=== PATIENT | male | born 1980 | race Caucasian/White ===

== ENCOUNTER → 2016-12-31 | Outpatient (CLI) | payer MEDICAID ==
[2016-12-31 10:43] LABS: ALBUMIN 4.2 GM/DL (3.2-5.2); ALBUMIN/GLOBULIN RATIO 1.17 (1.00-1.93); ALKALINE PHOSPHATASE 67 U/L (45-117); ALT/SGPT 55 U/L (12-78); ANION GAP 6 MEQ/L (8-16); AST/SGOT 24 U/L (15-37); BILIRUBIN,TOTAL 0.5 MG/DL (0.2-1.0); BLOOD UREA NITROGEN 16 MG/DL (7-18); CALCIUM LEVEL 8.8 MG/DL (8.5-10.1); CARBON DIOXIDE LEVEL 31 MEQ/L (21-32); CHLORIDE LEVEL 102 MEQ/L (98-107); GLOMERULAR FILTRATION RATE > 60.0 (>60); GLUCOSE, FASTING 92 MG/DL (70-105); POTASSIUM SERUM 4.4 MEQ/L (3.5-5.1); SODIUM LEVEL 139 MEQ/L (136-145); TOTAL PROTEIN 7.8 GM/DL (6.4-8.2)
[2016-12-31 10:44] LABS: MEAN CORPUSCULAR HEMOGLOBIN 28.9 pg (27.0-33.0); MEAN CORPUSCULAR HGB CONC 33.8 g/dl (32.0-36.5); MEAN CORPUSCULAR VOLUME 85.3 fl (80.0-96.0); RED CELL DISTRIBUTION WIDTH 12.9 % (11.5-14.5); WHITE BLOOD COUNT 5.8 K/mm3 (4.0-10.0)
[2017-01-01 10:58] LABS: HEPATITIS B SURFACE ANTIBODY NEGATIVE (POSITIVE)
== END ==
LOC: M LAB 09:20
PROVIDERS: ATTEND Nurse Practitioner Family
DX: Z02.9 Encounter for administrative examinations, unspecified (principal); B18.2 Chronic viral hepatitis C; B16.9 Acute hepatitis B without delta-agent and without hepatic coma; B15.9 Hepatitis A without hepatic coma; Z11.3 Encounter for screening for infections with a predominantly sexual mode of transmission; D35.2 Benign neoplasm of pituitary gland; E29.1 Testicular hypofunction; Z87.898 Personal history of other specified conditions

== ENCOUNTER → 2017-01-30 | Outpatient (CLI) | payer OTHER ==
--- NOTE | 2017-02-03 08:52 | REP ---
MR BRAIN WITHOUT CONTRAST: HISTORY: Tumor. CONTRAST: ProHance 7 mL. Comparison: 07/13/2012 There are no areas of abnormal signal intensity in the brain. There is no intraparenchymal hemorrhage, infarct, mass, or midline shift. The ventricular system is normal in appearance. There is no extracerebral collection. The pituitary gland is normal in size and signal intensity. The pituitary gland measures 6 mm in height. There is homogenous enhancement with contrast. The infundibulum is midline. The cavernous sinuses, optic chiasm, and hypothalamus are normal in appearance. The sinuses are clear. IMPRESSION: There is no intracranial lesion. Signed by Byron Meredith MD 02/04/2017 02:05 P
== END ==
LOC: M RAD 13:55
PROVIDERS: ATTEND Nurse Practitioner Family
DX: D35.2 Benign neoplasm of pituitary gland (principal)

== ENCOUNTER → 2017-03-22 | Outpatient (CLI) | payer OTHER ==
[2017-03-22 09:26] LABS: ALBUMIN 3.8 GM/DL (3.2-5.2); ALBUMIN/GLOBULIN RATIO 1.27 (1.00-1.93); BILIRUBIN,DIRECT 0.1 MG/DL (0.0-0.2); BILIRUBIN,TOTAL 0.4 MG/DL (0.2-1.0); TOTAL PROTEIN 6.8 GM/DL (6.4-8.2)
[2017-03-25 14:14] LABS: HEPATITIS C QUANTITATION HCV Not Detected IU/mL (.)
== END ==
LOC: M LAB 08:33
PROVIDERS: ATTEND Internal Medicine Infectious Disease
DX: B18.2 Chronic viral hepatitis C (principal)

== ENCOUNTER → 2017-05-22 | Outpatient (CLI) | payer OTHER ==
--- NOTE | 2017-05-22 14:37 | REP ---
LEFT SHOULDER THREE VIEWS: HISTORY: Pain. There is no acute fracture or dislocation. The joint spaces are normal in appearance. IMPRESSION: There is no acute fracture or dislocation. Signed by Byron Meredith MD 05/22/2017 02:41 P
== END ==
LOC: M LAB 12:52
PROVIDERS: ATTEND Internal Medicine Cardiovascular Disease
DX: M25.512 Pain in left shoulder (principal); Z20.9 Contact with and (suspected) exposure to unspecified communicable disease

== ENCOUNTER → 2017-06-06 | Outpatient (CLI) | payer OTHER ==
--- NOTE | 2017-06-13 18:38 | REP ---
MRI LEFT SHOULDER: TECHNIQUE: Axial T2 fat sat, gradient echo, sagittal oblique T2 fat sat, coronal oblique T1, T2 fat sat. No rotator cuff tear is seen. There are mild hypertrophic degenerative changes of the acromioclavicular joint with subchondral marrow edema. Acromion is type 1. Biceps tendon is within the bicipital groove with no tenosynovitis. There is no Hill-Sachs deformity. Deltoid muscle is unremarkable. No SLAP tear is seen. Biceps labral complex is intact. Anterior and posterior labrum are intact. Small subchondral cysts are seen in the superolateral humeral head. There is no other abnormal marrow signal. There is no joint effusion or paralabral cyst. IMPRESSION: Mild hypertrophic degenerative changes acromioclavicular joint with subchondral marrow edema. Mild subchondral cystic change in the humeral head. No rotator cuff tear or labral tear. Signed by Que Kaplan MD 06/16/2017 04:12 P
== END ==
LOC: M RAD 09:28
PROVIDERS: ATTEND Nurse Practitioner Family
DX: M19.012 Primary osteoarthritis, left shoulder (principal)

== ENCOUNTER → 2017-06-10 | Outpatient (CLI) | payer OTHER ==
[2017-06-10 14:56] LABS: ALBUMIN 4.1 GM/DL (3.2-5.2); ALBUMIN/GLOBULIN RATIO 1.24 (1.00-1.93); ALKALINE PHOSPHATASE 63 U/L (45-117); ALT/SGPT 29 U/L (12-78); AST/SGOT 24 U/L (15-37); BILIRUBIN,DIRECT 0.2 MG/DL (0.0-0.2); BILIRUBIN,TOTAL 0.7 MG/DL (0.2-1.0); TOTAL PROTEIN 7.4 GM/DL (6.4-8.2)
[2017-06-12 10:14] LABS: HEPATITIS C QUANTITATION HCV Not Detected IU/mL (.)
== END ==
LOC: M LAB 13:00
PROVIDERS: ATTEND Internal Medicine Infectious Disease
DX: B18.2 Chronic viral hepatitis C (principal)

== ENCOUNTER 2017-08-25 06:56 | Emergency (ER) | payer OTHER ==
[~2017-08-25] VITALS: Ht 182.9 cm; Wt 78.2 kg
[2017-08-25 06:57] VITALS: BP 153/86
[2017-08-25] MEDS ORDERED: BUPR150T3 (07:04)
[2017-08-25] MEDS ORDERED: VIVI380I (07:04)
[2017-08-25] MEDS ORDERED: FLON1SPR (07:33)
[2017-08-25] MEDS ORDERED: BENZ200C53 PO (07:33)
[2017-08-25] MEDS ORDERED: IBUP-1022 PO (07:33)
== END 2017-08-25 07:38 | disposition home or self-care (01) ==
LOC: M ED 06:56
DX: J06.9 Acute upper respiratory infection, unspecified (principal); Z72.0 Tobacco use

== ENCOUNTER 2017-09-04 15:09 | Emergency (ER) | payer OTHER ==
[~2017-09-04] VITALS: Ht 182.9 cm; Wt 77.3 kg
[2017-09-04 15:09] VITALS: BP 137/75
[~2017-09-04 15:09] MED LIST: BENZ200C53 PO; BUPR150T3; FLON1SPR; IBUP-1022 PO; VIVI380I
[2017-09-04] MEDS ORDERED: TAB-TAB (15:28)
[2017-09-04] MEDS ORDERED: IBUP-1022 PO ×2 (15:28→15:42)
[2017-09-04] MEDS ORDERED: METH1TAB40 PO (15:42)
== END 2017-09-04 16:00 | disposition home or self-care (01) ==
LOC: M ED 15:09
DX: M62.830 Muscle spasm of back (principal); F41.9 Anxiety disorder, unspecified; F33.9 Major depressive disorder, recurrent, unspecified; Z79.899 Other long term (current) drug therapy; F17.210 Nicotine dependence, cigarettes, uncomplicated

== ENCOUNTER → 2017-09-18 | Outpatient (CLI) | payer OTHER ==
[2017-09-18 08:34] LABS: ALBUMIN 3.9 GM/DL (3.2-5.2); ALBUMIN/GLOBULIN RATIO 1.34 (1.00-1.93); ALKALINE PHOSPHATASE 58 U/L (45-117); ALT/SGPT 20 U/L (12-78); AST/SGOT 17 U/L (7-37); BILIRUBIN,DIRECT 0.1 MG/DL (0.0-0.2); BILIRUBIN,TOTAL 0.3 MG/DL (0.2-1.0); TOTAL PROTEIN 6.8 GM/DL (6.4-8.2)
[2017-09-19 11:26] LABS: HEPATITIS B SURFACE ANTIBODY NEGATIVE (POSITIVE)
[2017-09-21 00:09] LABS: HEPATITIS C QUANTITATION HCV Not Detected IU/mL (.)
== END ==
LOC: M LAB 07:26
DX: B18.2 Chronic viral hepatitis C (principal)
CPT/HCPCS: 80076

== ENCOUNTER 2018-01-16 09:17 | Emergency (ER) | payer OTHER, SELFPAY | END 2018-01-16 09:54 | disposition home or self-care (01) | LOC: M ED 09:17 | DX: R20.9 Unspecified disturbances of skin sensation (principal); F32.9 Major depressive disorder, single episode, unspecified; F17.210 Nicotine dependence, cigarettes, uncomplicated | CPT/HCPCS: 99282 ==

== ENCOUNTER 2018-02-14 01:59 | Inpatient (IN) | payer OTHER, SELFPAY ==
[2018-02-14] MEDS: NS 1,000 ML IV ×4 (02:15→19:59)
[2018-02-14 02:40] LABS: ABG BASE EXCESS 4.1 (-2.0-2.0); ABG HCO3 22.6 MEQ/L (22.0-26.0); ABG O2 SATURATION 99.4 % (95.0-99.0); ABG PARTIAL PRESSURE CO2 20.6 mmHg (35.0-45.0); ABG PARTIAL PRESSURE O2 187.3 mmHg (75.0-100.0); ABG STANDARD HCO3 28.2 MEQ/L (22.0-26.0); ABG TOTAL CO2 23.3 MEQ/L (22.0-29.0)
[2018-02-14 02:45] LABS: ABG pH (ARTERIAL) 7.659 UNITS (7.350-7.450)
[2018-02-14 03:11] LABS: BASO # 0.1 10^3/uL (0.0-0.2); BASO % 0.4 % (0.0-1.0); EOS # 0.1 10^3/uL (0.0-0.50); EOS % 0.4 % (0.0-3.0); HEMATOCRIT 42.1 % (42.0-52.0); HEMOGLOBIN 14.2 g/dl (13.5-17.5); IMMATURE GRANULOCYTE % 0.5 % (0-3.0); LYMPH # 1.9 10^3/uL (1.5-4.5); LYMPH % 15.5 % (24.0-44.0); MEAN CORPUSCULAR HEMOGLOBIN 27.8 pg (27.0-33.0); MEAN CORPUSCULAR HGB CONC 33.7 g/dl (32.0-36.5); MEAN CORPUSCULAR VOLUME 82.4 fl (80.0-96.0); MONO # 1.1 10^3/uL (0.0-0.8); MONO % 8.5 % (0.0-5.0); NEUTROPHILS # 9.4 10^3/uL (1.8-7.7); NEUTROPHILS % 74.7 % (36.0-66.0); PLATELET COUNT, AUTOMATED 333 10^3/uL (150-450); RED BLOOD COUNT 5.11 10^6/uL (4.30-6.10); RED CELL DISTRIBUTION WIDTH 13.5 % (11.5-14.5); WHITE BLOOD COUNT 12.5 10^3/uL (4.0-10.0)
[2018-02-14 03:33] LABS: AMPHETAMINES LEVEL URINE NEGATIVE (NEGATIVE); BARBITURATES URINE NEGATIVE (NEGATIVE); BENZODIAZEPINES URINE POSITIVE (NEGATIVE); CANNABINOIDS URINE NEGATIVE (NEGATIVE); COCAINE METABOLITE URINE POSITIVE (NEGATIVE); METHADONE URINE POSITIVE (NEGATIVE); OPIATES URINE POSITIVE (NEGATIVE); OSMOLALITY SERUM 299 MOSM/KG (275-295); PHENCYCLIDINE URINE NEGATIVE (NEGATIVE)
[2018-02-14 03:54] LABS: ALBUMIN 3.6 GM/DL (3.2-5.2); ALBUMIN/GLOBULIN RATIO 0.97 (1.00-1.93); ALKALINE PHOSPHATASE 103 U/L (45-117); ALT/SGPT 1062 U/L (12-78); ANION GAP 7 MEQ/L (8-16); AST/SGOT 574 U/L (7-37); BILIRUBIN,DIRECT 0.3 MG/DL (0.0-0.2); BILIRUBIN,TOTAL 0.7 MG/DL (0.2-1.0); BLOOD UREA NITROGEN 20 MG/DL (7-18); CALCIUM LEVEL 9.1 MG/DL (8.5-10.1); CARBON DIOXIDE LEVEL 27 MEQ/L (21-32); CHLORIDE LEVEL 108 MEQ/L (98-107); CPK CREATINE PHOSPHOKINASE 142 U/L (39-308); CREATININE FOR GFR 1.06 MG/DL (0.70-1.30); GLOMERULAR FILTRATION RATE > 60.0 (>60); GLUCOSE, FASTING 116 MG/DL (70-100); SALICYLATE LEVEL 2.1 MG/DL (5.0-30.0); SODIUM LEVEL 142 MEQ/L (136-145); TOTAL PROTEIN 7.3 GM/DL (6.4-8.2)
[2018-02-14 03:55] LABS: ACETAMINOPHEN LEVEL < 2.0 UG/ML (10.0-30.0); ETHYL ALCOHOL (ETHANOL) < 0.003 % (0.000-0.010)
[2018-02-14] MEDS ORDERED: PROPOFOL 1,000 MG/100 ML VIAL As Ordered (03:59)
[2018-02-14] MEDS: ETOMIDATE INJ 20MG/10ML VIAL IV (04:08)
[2018-02-14] MEDS: SUCCINYLCHOLINE INJ 200 MG/10 ML VIAL (J0330) IV (04:09)
[2018-02-14] MEDS: PROPOFOL 1,000 MG in APPROPRIATE DILUENT 1 EA IV ×8 (04:12→22:38)
[2018-02-14] MEDS ORDERED: MIDAZOLAM INJ 5 MG/ML VIAL (J2250) As Ordered (04:18)
[2018-02-14] MEDS: MIDAZOLAM INJ 2 MG/2 ML VIAL (J2250) IV ×11 (04:20→23:46)
[2018-02-14 05:05] LABS: ABG BASE EXCESS 1.3 (-2.0-2.0); ABG HCO3 25.8 MEQ/L (22.0-26.0); ABG O2 SATURATION 98.7 % (95.0-99.0); ABG PARTIAL PRESSURE CO2 40.5 mmHg (35.0-45.0); ABG PARTIAL PRESSURE O2 122.5 mmHg (75.0-100.0); ABG STANDARD HCO3 25.6 MEQ/L (22.0-26.0); ABG pH (ARTERIAL) 7.422 UNITS (7.350-7.450)
[2018-02-14] MEDS ORDERED: METAL LOCK LOOP XX (05:20)
[2018-02-14] MEDS ORDERED: ALBUTEROL SULFATE 2.5 MG/0.5 ML INH NEB SOLN NEB (05:30)
[2018-02-14] MEDS: D5W IV ×2 (06:49→08:46)
[2018-02-14] MEDS: ACETYLCYSTEINE IV ×2 (06:49→08:46)
[2018-02-14] MEDS: IPRATROPIUM 0.5MG/ALBUTEROL 2.5MG INH SOL UD 3ML (DUONEB)(J7620) NEB ×5 (07:48→23:22)
[2018-02-14] MEDS: ENOXAPARIN 40 MG/0.4 ML SYRINGE (J1650) SC (09:31)
[2018-02-14] MEDS: CHLORHEXIDINE ORAL RINSE 0.12%/15ML 120ML BOTTLE MT ×2 (09:31→21:10)
[2018-02-14] MEDS: PANTOPRAZOLE 40MG INJ (PROTONIX) (C9113) IV (09:31)
[2018-02-14] MEDS: MORPHINE 4 MG/ML 1ML VIAL/SYRINGE (J2270) IV ×5 (11:46→23:46)
[2018-02-14] MEDS: ACETYLCYSTEINE 7,500 MG in D5W 1,000 ML IV (13:10)
[2018-02-14 13:28] LABS: INR 1.02; PROTHROMBIN TIME 13.5 SECONDS (12.4-14.5)
[2018-02-14] MEDS: ONDANSETRON 4MG/2ML VIAL (J2405) IV (22:08)
[2018-02-15] MEDS: MIDAZOLAM INJ 2 MG/2 ML VIAL (J2250) IV ×9 (00:51→11:13)
[2018-02-15] MEDS: PROPOFOL 1,000 MG in APPROPRIATE DILUENT 1 EA IV ×4 (01:37→09:59)
[2018-02-15 03:02] LABS: BASO % 0.3 % (0.0-1.0); EOS % 0.3 % (0.0-3.0); HEMOGLOBIN 13.6 g/dl (13.5-17.5); IMMATURE GRANULOCYTE % 0.3 % (0-3.0); LYMPH # 1.3 10^3/uL (1.5-4.5); LYMPH % 11.3 % (24.0-44.0); MEAN CORPUSCULAR HEMOGLOBIN 27.6 pg (27.0-33.0); MEAN CORPUSCULAR HGB CONC 33.2 g/dl (32.0-36.5); MEAN CORPUSCULAR VOLUME 83.3 fl (80.0-96.0); MONO # 0.7 10^3/uL (0.0-0.8); MONO % 6.4 % (0.0-5.0); NEUTROPHILS # 9.4 10^3/uL (1.8-7.7); NEUTROPHILS % 81.4 % (36.0-66.0); PLATELET COUNT, AUTOMATED 297 10^3/uL (150-450); RED BLOOD COUNT 4.92 10^6/uL (4.30-6.10); RED CELL DISTRIBUTION WIDTH 13.9 % (11.5-14.5); WHITE BLOOD COUNT 11.6 10^3/uL (4.0-10.0)
[2018-02-15 03:18] LABS: ACETAMINOPHEN LEVEL < 2.0 UG/ML (10.0-30.0)
[2018-02-15] MEDS: IPRATROPIUM 0.5MG/ALBUTEROL 2.5MG INH SOL UD 3ML (DUONEB)(J7620) NEB ×3 (03:21→11:21)
[2018-02-15 03:22] LABS: ALBUMIN 2.8 GM/DL (3.2-5.2); ALBUMIN/GLOBULIN RATIO 0.76 (1.00-1.93); ALKALINE PHOSPHATASE 83 U/L (45-117); ALT/SGPT 802 U/L (12-78); ANION GAP 8 MEQ/L (8-16); AST/SGOT 314 U/L (7-37); BILIRUBIN,TOTAL 0.4 MG/DL (0.2-1.0); BLOOD UREA NITROGEN 8 MG/DL (7-18); CALCIUM LEVEL 7.8 MG/DL (8.5-10.1); CARBON DIOXIDE LEVEL 26 MEQ/L (21-32); CHLORIDE LEVEL 111 MEQ/L (98-107); CHOLESTEROL LEVEL 76 MG/DL (< 200); CPK CREATINE PHOSPHOKINASE 62 U/L (39-308); CREATININE FOR GFR 0.88 MG/DL (0.70-1.30); GLOMERULAR FILTRATION RATE > 60.0 (>60); GLUCOSE, FASTING 121 MG/DL (70-100); LDH LACTATE DEHYDROGENASE 242 U/L (87-241); PHOSPHORUS LEVEL 3.3 MG/DL (2.5-4.9); POTASSIUM SERUM 3.2 MEQ/L (3.5-5.1); SODIUM LEVEL 145 MEQ/L (136-145); TOTAL PROTEIN 6.5 GM/DL (6.4-8.2); TRIGLYCERIDES LEVEL 72 MG/DL (<150)
[2018-02-15] MEDS: ONDANSETRON 4MG/2ML VIAL (J2405) IV (04:10)
[2018-02-15] MEDS: MORPHINE 4 MG/ML 1ML VIAL/SYRINGE (J2270) IV ×2 (04:10→09:02)
[2018-02-15] MEDS: NS 1,000 ML IV ×2 (07:31→20:08)
[2018-02-15] MEDS: CHLORHEXIDINE ORAL RINSE 0.12%/15ML 120ML BOTTLE MT (07:32)
[2018-02-15] MEDS: PANTOPRAZOLE 40MG INJ (PROTONIX) (C9113) IV ×2 (10:14→20:07)
[2018-02-15] MEDS: ENOXAPARIN 40 MG/0.4 ML SYRINGE (J1650) SC (10:14)
[2018-02-15 10:36] LABS: INR 1.04; PROTHROMBIN TIME 13.7 SECONDS (12.4-14.5)
[2018-02-15] MEDS: METHADONE 10 MG TAB (S0109) PO ×3 (12:25→20:07)
[2018-02-16 04:57] LABS: BASO # 0.1 10^3/uL (0.0-0.2); BASO % 0.3 % (0.0-1.0); EOS % 0.1 % (0.0-3.0); HEMATOCRIT 35.9 % (42.0-52.0); IMMATURE GRANULOCYTE % 0.4 % (0-3.0); LYMPH # 1.7 10^3/uL (1.5-4.5); LYMPH % 11.3 % (24.0-44.0); MEAN CORPUSCULAR HEMOGLOBIN 27.6 pg (27.0-33.0); MEAN CORPUSCULAR HGB CONC 33.4 g/dl (32.0-36.5); MEAN CORPUSCULAR VOLUME 82.7 fl (80.0-96.0); MONO # 0.9 10^3/uL (0.0-0.8); MONO % 5.6 % (0.0-5.0); NEUTROPHILS # 12.4 10^3/uL (1.8-7.7); NEUTROPHILS % 82.3 % (36.0-66.0); PLATELET COUNT, AUTOMATED 288 10^3/uL (150-450); RED BLOOD COUNT 4.34 10^6/uL (4.30-6.10); RED CELL DISTRIBUTION WIDTH 13.9 % (11.5-14.5); WHITE BLOOD COUNT 15.1 10^3/uL (4.0-10.0)
[2018-02-16 05:18] LABS: ALBUMIN 2.5 GM/DL (3.2-5.2); ALBUMIN/GLOBULIN RATIO 0.69 (1.00-1.93); ALKALINE PHOSPHATASE 80 U/L (45-117); ALT/SGPT 547 U/L (12-78); ANION GAP 4 MEQ/L (8-16); AST/SGOT 159 U/L (7-37); BILIRUBIN,TOTAL 0.7 MG/DL (0.2-1.0); BLOOD UREA NITROGEN 7 MG/DL (7-18); CALCIUM LEVEL 7.7 MG/DL (8.5-10.1); CARBON DIOXIDE LEVEL 28 MEQ/L (21-32); CHLORIDE LEVEL 114 MEQ/L (98-107); CHOLESTEROL LEVEL 72 MG/DL (< 200); CPK CREATINE PHOSPHOKINASE 79 U/L (39-308); CREATININE FOR GFR 0.62 MG/DL (0.70-1.30); GLOMERULAR FILTRATION RATE > 60.0 (>60); GLUCOSE, FASTING 123 MG/DL (70-100); LDH LACTATE DEHYDROGENASE 198 U/L (87-241); PHOSPHORUS LEVEL 2.2 MG/DL (2.5-4.9); POTASSIUM SERUM 3.3 MEQ/L (3.5-5.1); SODIUM LEVEL 146 MEQ/L (136-145); TOTAL PROTEIN 6.1 GM/DL (6.4-8.2); TRIGLYCERIDES LEVEL 37 MG/DL (<150)
[2018-02-16] MEDS: PANTOPRAZOLE 40MG INJ (PROTONIX) (C9113) IV (08:03)
[2018-02-16] MEDS: ENOXAPARIN 40 MG/0.4 ML SYRINGE (J1650) SC (08:03)
[2018-02-16] MEDS: METHADONE 10 MG TAB (S0109) PO ×3 (08:03→20:35)
[2018-02-16] MEDS: NS 1,000 ML IV (08:04)
[2018-02-16 12:06] LABS: ERYTHROCYTE SEDIMENTATION RATE 12 mm/hr (0-15)
[2018-02-17 06:08] LABS: BASO # 0.1 10^3/uL (0.0-0.2); BASO % 0.6 % (0.0-1.0); EOS # 0.1 10^3/uL (0.0-0.50); EOS % 0.9 % (0.0-3.0); HEMATOCRIT 38.3 % (42.0-52.0); HEMOGLOBIN 12.9 g/dl (13.5-17.5); IMMATURE GRANULOCYTE % 0.5 % (0-3.0); LYMPH # 2.1 10^3/uL (1.5-4.5); LYMPH % 19.1 % (24.0-44.0); MEAN CORPUSCULAR HGB CONC 33.7 g/dl (32.0-36.5); MEAN CORPUSCULAR VOLUME 83.1 fl (80.0-96.0); MONO # 0.8 10^3/uL (0.0-0.8); MONO % 7.4 % (0.0-5.0); NEUTROPHILS # 7.8 10^3/uL (1.8-7.7); NEUTROPHILS % 71.5 % (36.0-66.0); PLATELET COUNT, AUTOMATED 308 10^3/uL (150-450); RED BLOOD COUNT 4.61 10^6/uL (4.30-6.10); RED CELL DISTRIBUTION WIDTH 13.8 % (11.5-14.5); WHITE BLOOD COUNT 10.9 10^3/uL (4.0-10.0)
[2018-02-17 06:33] LABS: ALBUMIN 2.7 GM/DL (3.2-5.2); ALBUMIN/GLOBULIN RATIO 0.66 (1.00-1.93); ALKALINE PHOSPHATASE 84 U/L (45-117); ALT/SGPT 446 U/L (12-78); ANION GAP 6 MEQ/L (8-16); AST/SGOT 104 U/L (7-37); BILIRUBIN,TOTAL 0.4 MG/DL (0.2-1.0); BLOOD UREA NITROGEN 8 MG/DL (7-18); CALCIUM LEVEL 8.4 MG/DL (8.5-10.1); CARBON DIOXIDE LEVEL 28 MEQ/L (21-32); CHLORIDE LEVEL 110 MEQ/L (98-107); CHOLESTEROL LEVEL 79 MG/DL (< 200); CPK CREATINE PHOSPHOKINASE 53 U/L (39-308); CREATININE FOR GFR 0.68 MG/DL (0.70-1.30); GLOMERULAR FILTRATION RATE > 60.0 (>60); GLUCOSE, FASTING 118 MG/DL (70-100); LDH LACTATE DEHYDROGENASE 178 U/L (87-241); PHOSPHORUS LEVEL 2.7 MG/DL (2.5-4.9); POTASSIUM SERUM 3.4 MEQ/L (3.5-5.1); SODIUM LEVEL 144 MEQ/L (136-145); TOTAL PROTEIN 6.8 GM/DL (6.4-8.2); TRIGLYCERIDES LEVEL 80 MG/DL (<150)
[2018-02-17] MEDS: POTASSIUM CHLORIDE 10 MEQ SR TABLET PO (08:00)
[2018-02-17] MEDS: ENOXAPARIN 40 MG/0.4 ML SYRINGE (J1650) SC (08:14)
[2018-02-17] MEDS: METHADONE 10 MG TAB (S0109) PO ×3 (08:14→22:30)
[2018-02-18] MEDS: METHADONE 10 MG TAB (S0109) PO ×2 (08:18→15:07)
[2018-02-18] MEDS: ENOXAPARIN 40 MG/0.4 ML SYRINGE (J1650) SC (08:19)
[2018-02-18 09:27] LABS: HEPATITIS B SURFACE ANTIGEN NEGATIVE (NEGATIVE)
[2018-02-18 09:42] LABS: HEPATITIS B CORE ANTIBODY IGM NEGATIVE (NEGATIVE)
[2018-02-18 09:44] LABS: HEPATITIS A ANTIBODY IGM NEGATIVE (NEGATIVE)
[2018-02-18 10:44] LABS: HEPATITIS C VIRUS ABY INDEX > 11.0 INDEX (<0.8)
[2018-02-18] MEDS: POTASSIUM CHLORIDE 10 MEQ SR TABLET PO (15:15)
== END 2018-02-18 16:15 | DRG 816 ==
LOC: M MS5PR 02-16 12:49 → M ED 01:59 → M ED INP 05:14 → M ICU 05:52
PROC: 5A1945Z Respiratory Ventilation, 24-96 Consecutive Hours (ICD-10-PCS; principal; 2018-02-14)
DX: T40.1X4A Poisoning by heroin, undetermined, initial encounter (principal); J96.00 Acute respiratory failure, unspecified whether with hypoxia or hypercapnia; D69.6 Thrombocytopenia, unspecified; R45.851 Suicidal ideations; T42.4X2A Poisoning by benzodiazepines, intentional self-harm, initial encounter; F31.9 Bipolar disorder, unspecified; F13.10 Sedative, hypnotic or anxiolytic abuse, uncomplicated; R94.5 Abnormal results of liver function studies; F11.10 Opioid abuse, uncomplicated; E87.6 Hypokalemia; D64.9 Anemia, unspecified

== ENCOUNTER 2018-02-18 16:14 | Inpatient (IN) | payer MEDICAID, SELFPAY ==
[2018-02-18] MEDS ORDERED: MAALOX 30 ML SUSP *UDC PO (18:00)
[2018-02-18] MEDS ORDERED: MOM 30ML SUSPENSION UDC PO (18:00)
[2018-02-18] MEDS ORDERED: ACETAMINOPHEN TAB 650MG DOSE (2X325MG) PO (18:00)
[2018-02-18] MEDS: METHADONE 10 MG TAB (S0109) PO (21:46)
[2018-02-19] MEDS: NICOTINE 21MG/24HR 1 EA TRANSDERMAL TD (09:03)
[2018-02-19] MEDS: METHADONE 10 MG TAB (S0109) PO ×2 (09:03→21:10)
[2018-02-19 13:09] LABS: ALBUMIN 3.3 GM/DL (3.2-5.2); ALBUMIN/GLOBULIN RATIO 0.87 (1.00-1.93); ALKALINE PHOSPHATASE 89 U/L (45-117); ALT/SGPT 450 U/L (12-78); AST/SGOT 143 U/L (7-37); BILIRUBIN,DIRECT 0.2 MG/DL (0.0-0.2); BILIRUBIN,TOTAL 0.5 MG/DL (0.2-1.0); TOTAL PROTEIN 7.1 GM/DL (6.4-8.2)
[2018-02-20] MEDS: NICOTINE 21MG/24HR 1 EA TRANSDERMAL TD (08:10)
[2018-02-20] MEDS: METHADONE 10 MG TAB (S0109) PO ×2 (08:11→20:05)
[2018-02-20 08:36] LABS: ALBUMIN 3.3 GM/DL (3.2-5.2); ALBUMIN/GLOBULIN RATIO 0.89 (1.00-1.93); ALKALINE PHOSPHATASE 87 U/L (45-117); ALT/SGPT 466 U/L (12-78); AST/SGOT 168 U/L (7-37); BILIRUBIN,DIRECT 0.2 MG/DL (0.0-0.2); BILIRUBIN,TOTAL 0.5 MG/DL (0.2-1.0)
[2018-02-20 10:15] LABS: ANION GAP 5 MEQ/L (8-16); BLOOD UREA NITROGEN 17 MG/DL (7-18); CALCIUM LEVEL 8.7 MG/DL (8.5-10.1); CARBON DIOXIDE LEVEL 31 MEQ/L (21-32); CHLORIDE LEVEL 107 MEQ/L (98-107); CREATININE FOR GFR 0.93 MG/DL (0.70-1.30); GLOMERULAR FILTRATION RATE > 60.0 (>60); GLUCOSE, FASTING 94 MG/DL (70-100); POTASSIUM SERUM 4.2 MEQ/L (3.5-5.1); SODIUM LEVEL 143 MEQ/L (136-145)
[2018-02-20] MEDS: MULTIVITAMINS/MINERALS THERAP 1 TAB PO (11:46)
[2018-02-21] MEDS: METHADONE 10 MG TAB (S0109) PO ×2 (08:10→20:01)
[2018-02-21] MEDS: MULTIVITAMINS/MINERALS THERAP 1 TAB PO (08:10)
[2018-02-21] MEDS: NICOTINE 21MG/24HR 1 EA TRANSDERMAL TD (08:11)
[2018-02-21 09:05] LABS: ALBUMIN 3.3 GM/DL (3.2-5.2); ALBUMIN/GLOBULIN RATIO 0.87 (1.00-1.93); ALKALINE PHOSPHATASE 83 U/L (45-117); ALT/SGPT 478 U/L (12-78); ANION GAP 2 MEQ/L (8-16); AST/SGOT 158 U/L (7-37); BILIRUBIN,DIRECT 0.3 MG/DL (0.0-0.2); BILIRUBIN,TOTAL 0.7 MG/DL (0.2-1.0); BLOOD UREA NITROGEN 14 MG/DL (7-18); CALCIUM LEVEL 8.8 MG/DL (8.5-10.1); CARBON DIOXIDE LEVEL 33 MEQ/L (21-32); CHLORIDE LEVEL 107 MEQ/L (98-107); CREATININE FOR GFR 0.97 MG/DL (0.70-1.30); GLOMERULAR FILTRATION RATE > 60.0 (>60); GLUCOSE, FASTING 76 MG/DL (70-100); POTASSIUM SERUM 4.4 MEQ/L (3.5-5.1); SODIUM LEVEL 142 MEQ/L (136-145); TOTAL PROTEIN 7.1 GM/DL (6.4-8.2)
[2018-02-21] MEDS: IBUPROFEN 400 MG TAB PO (20:00)
[2018-02-21] MEDS: traZODone 50 MG TAB PO (22:37)
[2018-02-22 07:44] LABS: ALBUMIN 3.2 GM/DL (3.2-5.2); ALBUMIN/GLOBULIN RATIO 0.86 (1.00-1.93); ALKALINE PHOSPHATASE 86 U/L (45-117); ALT/SGPT 480 U/L (12-78); AST/SGOT 164 U/L (7-37); BILIRUBIN,DIRECT 0.2 MG/DL (0.0-0.2); BILIRUBIN,TOTAL 0.6 MG/DL (0.2-1.0); TOTAL PROTEIN 6.9 GM/DL (6.4-8.2)
[2018-02-22] MEDS: MULTIVITAMINS/MINERALS THERAP 1 TAB PO (08:07)
[2018-02-22] MEDS: METHADONE 10 MG TAB (S0109) PO ×2 (08:07→20:01)
[2018-02-22] MEDS: NICOTINE 21MG/24HR 1 EA TRANSDERMAL TD ×3 (08:08→11:50)
[2018-02-22] MEDS: IBUPROFEN 400 MG TAB PO (19:59)
[2018-02-22] MEDS: traZODone 50 MG TAB PO (21:29)
[2018-02-23 08:31] LABS: ALBUMIN 3.2 GM/DL (3.2-5.2); ALBUMIN/GLOBULIN RATIO 0.89 (1.00-1.93); ALKALINE PHOSPHATASE 89 U/L (45-117); ALT/SGPT 487 U/L (12-78); AST/SGOT 162 U/L (7-37); BILIRUBIN,DIRECT 0.2 MG/DL (0.0-0.2); BILIRUBIN,TOTAL 0.4 MG/DL (0.2-1.0); TOTAL PROTEIN 6.8 GM/DL (6.4-8.2)
[2018-02-23] MEDS: METHADONE 10 MG TAB (S0109) PO ×2 (08:55→20:51)
[2018-02-23] MEDS: MULTIVITAMINS/MINERALS THERAP 1 TAB PO (08:56)
[2018-02-23] MEDS: NICOTINE 21MG/24HR 1 EA TRANSDERMAL TD ×2 (08:56→11:50)
[2018-02-23 10:57] LABS: HEPATITIS B SURFACE ANTIBODY POSITIVE (POSITIVE)
[2018-02-23 11:07] LABS: HEPATITIS B SURFACE ANTIGEN NEGATIVE (NEGATIVE)
[2018-02-23 11:36] LABS: HEPATITIS B CORE ANTIBODY IGM NEGATIVE (NEGATIVE)
[2018-02-23] MEDS: IBUPROFEN 400 MG TAB PO (20:50)
[2018-02-23] MEDS: traZODone 50 MG TAB PO (22:57)
[2018-02-24] MEDS: NICOTINE 21MG/24HR 1 EA TRANSDERMAL TD ×2 (09:00→15:47)
[2018-02-24] MEDS: MULTIVITAMINS/MINERALS THERAP 1 TAB PO ×2 (09:00→10:01)
[2018-02-24] MEDS: METHADONE 10 MG TAB (S0109) PO ×2 (09:00→10:01)
[2018-02-24] MEDS: METHADONE 5 MG TAB (S0109) PO ×2 (10:01→20:01)
[2018-02-24 10:17] LABS: HCV RNA (INTERNATIONAL UNITS) 23134000 IU/mL (.); HEPATITIS C QUANTITATION See Final Results IU/mL (.)
[2018-02-24] MEDS: GABAPENTIN 100 MG CAP PO ×3 (11:45→20:01)
[2018-02-24] MEDS: traZODone 50 MG TAB PO (22:40)
[2018-02-25 08:10] LABS: ALPHA 2-MACROGLOBULIN 165 mg/dL (110-276); ALT 502 IU/L (0-55); APOLIPOPROTEIN A-1 115 mg/dL (101-178); FIBROSIS SCORE 0.27 (0.00-0.21); FIBROSIS STAGE F0-F1 (.); GGT 280 IU/L (0-65); HAPTOGLOBIN 162 mg/dL (34-200); HEPATITIS B CORE ANTIBODY IGG Negative (Negative); NECROINFLAM SCORE 0.95 (0.00-0.17); NECROINFLAMM GRADE A3-Severe activity (.); TOTAL BILIRUBIN 0.4 mg/dL (0.0-1.2)
[2018-02-25] MEDS: MULTIVITAMINS/MINERALS THERAP 1 TAB PO (08:59)
[2018-02-25] MEDS: GABAPENTIN 100 MG CAP PO ×2 (09:00→16:03)
[2018-02-25] MEDS: NICOTINE 21MG/24HR 1 EA TRANSDERMAL TD ×2 (09:00→12:05)
[2018-02-25] MEDS: METHADONE 5 MG TAB (S0109) PO ×2 (09:56→20:04)
[2018-02-25] MEDS: GABAPENTIN 300 MG CAP PO (20:04)
[2018-02-25] MEDS: IBUPROFEN 400 MG TAB PO (20:06)
[2018-02-25] MEDS: traZODone 50 MG TAB PO (22:24)
[2018-02-26] MEDS: MULTIVITAMINS/MINERALS THERAP 1 TAB PO (08:43)
[2018-02-26] MEDS: GABAPENTIN 300 MG CAP PO (08:43)
[2018-02-26] MEDS: METHADONE 5 MG TAB (S0109) PO (08:43)
[2018-02-26] MEDS: NICOTINE 21MG/24HR 1 EA TRANSDERMAL TD (08:44)
[2018-02-27 00:07] LABS: HEPATITIS C QUANTITATION 5351080 IU/mL (.); HEPATITIS C VIRUS GENOTYPE 3 (.)
== END 2018-02-26 11:25 | disposition home or self-care (01) | DRG 753 ==
LOC: M PSY 16:14
DX: F31.9 Bipolar disorder, unspecified (principal); F14.20 Cocaine dependence, uncomplicated; F19.14 Other psychoactive substance abuse with psychoactive substance-induced mood disorder; F11.20 Opioid dependence, uncomplicated; R74.0 Nonspecific elevation of levels of transaminase and lactic acid dehydrogenase [LDH]; F15.20 Other stimulant dependence, uncomplicated; F17.210 Nicotine dependence, cigarettes, uncomplicated; Z79.899 Other long term (current) drug therapy; Z81.8 Family history of other mental and behavioral disorders

== ENCOUNTER 2018-07-02 10:18 | Outpatient (RCR) | payer MEDICAID | END 2018-07-15 | LOC: M OUTALCOH 10:18 | DX: F11.20 Opioid dependence, uncomplicated (principal); F13.10 Sedative, hypnotic or anxiolytic abuse, uncomplicated ==

== ENCOUNTER 2018-07-07 01:38 | Emergency (ER) | payer MEDICAID ==
[2018-07-07] MEDS: AZITHROMYCIN 250 MG TAB PO (02:15)
[2018-07-07] MEDS: cefTRIAXone SOD 250 MG VIAL (J0696) IM (02:15)
[2018-07-07] MEDS ORDERED: LIDOCAINE 1% MDV 20ML VIAL As Ordered (02:16)
[2018-07-07 03:52] LABS: CHLAMYDIA DNA AMPLIFICATION NEGATIVE (NEGATIVE); GC DNA AMPLIFICATION NEGATIVE (NEGATIVE)
== END 2018-07-07 02:29 | disposition home or self-care (01) ==
LOC: M ED 01:38
DX: N50.89 Other specified disorders of the male genital organs (principal); A51.0 Primary genital syphilis; Z88.2 Allergy status to sulfonamides; Z88.8 Allergy status to other drugs, medicaments and biological substances; F17.210 Nicotine dependence, cigarettes, uncomplicated
CPT/HCPCS: J0696

== ENCOUNTER 2018-07-16 21:46 | Emergency (ER) | payer MEDICAID | END 2018-07-17 00:15 | disposition left against medical advice (07) | LOC: M ED 21:46 | DX: Z53.29 Procedure and treatment not carried out because of patient's decision for other reasons (principal) ==

== ENCOUNTER 2018-07-23 15:00 | Outpatient (RCR) | payer MEDICAID | END 2018-08-14 | LOC: M OUTALCOH 07-29 13:00 | DX: F13.10 Sedative, hypnotic or anxiolytic abuse, uncomplicated (principal) ==

== ENCOUNTER 2018-08-25 09:16 | Emergency (ER) | payer OTHER, MEDICAID ==
[2018-08-25] MEDS: IBUPROFEN 600 MG TAB PO (10:01)
== END 2018-08-25 10:39 | disposition home or self-care (01) ==
LOC: M ED 09:16
DX: S80.01XA Contusion of right knee, initial encounter (principal); W00.9XXA Unspecified fall due to ice and snow, initial encounter; Y92.410 Unspecified street and highway as the place of occurrence of the external cause
CPT/HCPCS: 73564

== ENCOUNTER 2018-09-09 12:55 | Outpatient (RCR) | payer MEDICAID ==
[~2018-09-09 12:55] MED LIST changes: -BENZ200C53 PO; +BENZ200C70 PO; +DOLO10TA PO; +GABA-843 PO; +METH1TAB40 PO; +NICO21PAT TD; +TAB-TAB; +TRAZO50TA PO
== END 2018-09-14 ==
LOC: M OUTALCOH 12:55
PROVIDERS: ATTEND Psychiatry & Neurology Psychiatry
DX: F13.10 Sedative, hypnotic or anxiolytic abuse, uncomplicated (principal)

== ENCOUNTER 2018-09-30 14:32 | Emergency (ER) | payer MEDICAID, OTHER ==
[~2018-09-30] VITALS: Ht 182.9 cm; Wt 72.7 kg
[2018-09-30 14:38] VITALS: BP 147/72
[2018-09-30] MEDS ORDERED: GABA-843 (14:41)
[2018-09-30] MEDS ORDERED: SERO50TA PO ×2 (14:41→15:07)
== END 2018-09-30 15:11 | disposition home or self-care (01) ==
LOC: M ED 14:32
DX: F32.9 Major depressive disorder, single episode, unspecified (principal); Z76.0 Encounter for issue of repeat prescription

== ENCOUNTER → 2018-10-15 | Outpatient (RCR) | payer OTHER ==
[~2018-10-15] MED LIST changes: +GABA-843; +SERO50TA PO
== END ==
LOC: M OUTALCOH 10-07 09:05
PROVIDERS: ATTEND Psychiatry & Neurology Psychiatry
DX: F13.10 Sedative, hypnotic or anxiolytic abuse, uncomplicated (principal)

== ENCOUNTER 2018-11-24 10:41 | Emergency (ER) | payer MEDICAID, OTHER ==
[~2018-11-24] VITALS: Ht 182.9 cm; Wt 79.3 kg
[~2018-11-24 10:41] MED LIST changes: -GABA-843
[2018-11-24] MEDS ORDERED: BUPR150T3 PO (11:14)
[2018-11-24] MEDS ORDERED: VIVI380I INJ (11:14)
[2018-11-24] MEDS ORDERED: GABA-843 PO (11:58)
[2018-11-24 12:06] VITALS: BP 144/78
== END 2018-11-24 12:05 | disposition home or self-care (01) ==
LOC: M ED 10:41
DX: Z76.0 Encounter for issue of repeat prescription (principal); F31.9 Bipolar disorder, unspecified; F33.9 Major depressive disorder, recurrent, unspecified; F41.9 Anxiety disorder, unspecified; F43.10 Post-traumatic stress disorder, unspecified; F90.9 Attention-deficit hyperactivity disorder, unspecified type; G47.00 Insomnia, unspecified; Z79.899 Other long term (current) drug therapy; Z88.2 Allergy status to sulfonamides; Z88.8 Allergy status to other drugs, medicaments and biological substances; F17.210 Nicotine dependence, cigarettes, uncomplicated

== ENCOUNTER → 2019-01-19 | Outpatient (CLI) | payer OTHER ==
[~2019-01-19] MED LIST changes: +BUPR150T3 PO; +VIVI380I INJ
[2019-01-19 16:58] LABS: BASO # 0.1 10^3/uL (0.0-0.2); EOS # 0.1 10^3/uL (0.0-0.50); EOS % 1.5 % (0.0-3.0); HEMATOCRIT 42.7 % (42.0-52.0); HEMOGLOBIN 14.7 g/dl (13.5-17.5); LYMPH # 2.4 10^3/uL (1.5-4.5); LYMPH % 27.1 % (24.0-44.0); MEAN CORPUSCULAR HEMOGLOBIN 29.5 pg (27.0-33.0); MEAN CORPUSCULAR HGB CONC 34.4 g/dl (32.0-36.5); MEAN CORPUSCULAR VOLUME 85.7 fl (80.0-96.0); MONO # 0.6 10^3/uL (0.0-0.8); MONO % 6.6 % (0.0-5.0); NEUTROPHILS # 5.6 10^3/uL (1.8-7.7); NEUTROPHILS % 63.5 % (36.0-66.0); PLATELET COUNT, AUTOMATED 381 10^3/uL (150-450); RED BLOOD COUNT 4.98 10^6/uL (4.30-6.10); WHITE BLOOD COUNT 8.8 10^3/uL (4.0-10.0)
[2019-01-19 17:32] LABS: ALBUMIN 3.8 GM/DL (3.2-5.2); ALT/SGPT 41 U/L (12-78); BILIRUBIN,TOTAL 0.3 MG/DL (0.2-1.0); BLOOD UREA NITROGEN 8 MG/DL (7-18); CALCIUM LEVEL 8.7 MG/DL (8.5-10.1); CARBON DIOXIDE LEVEL 27 MEQ/L (21-32); CHLORIDE LEVEL 106 MEQ/L (98-107); CREATININE FOR GFR 0.73 MG/DL (0.70-1.30); GLOMERULAR FILTRATION RATE > 60.0 (>60); GLUCOSE, FASTING 89 MG/DL (70-100); POTASSIUM SERUM 4.1 MEQ/L (3.5-5.1); SODIUM LEVEL 138 MEQ/L (136-145); TOTAL PROTEIN 6.9 GM/DL (6.4-8.2)
[2019-01-19 18:09] LABS: CHLAMYDIA DNA AMPLIFICATION NEGATIVE (NEGATIVE); GC DNA AMPLIFICATION NEGATIVE (NEGATIVE)
[2019-01-20 09:38] LABS: HEPATITIS B SURFACE ANTIBODY POSITIVE (POSITIVE)
[2019-01-20 09:48] LABS: HEPATITIS B SURFACE ANTIGEN NEGATIVE (NEGATIVE)
[2019-01-20 10:17] LABS: HIV 1&2 SCREEN CENTAUR NEGATIVE (NEGATIVE)
[2019-01-20 10:18] LABS: HEPATITIS C VIRUS ABY INDEX > 11.0 INDEX (<0.8)
[2019-01-22 08:06] LABS: HEPATITIS A IgG TOTAL Positive (Negative); HEPATITIS B CORE ANTIBODY IGG Negative (Negative)
== END ==
LOC: M LAB 15:33
DX: Z00.00 Encounter for general adult medical examination without abnormal findings (principal); Z11.4 Encounter for screening for human immunodeficiency virus [HIV]; B18.2 Chronic viral hepatitis C; Z20.5 Contact with and (suspected) exposure to viral hepatitis

== ENCOUNTER → 2019-02-25 | Outpatient (REF) | payer OTHER ==
[~2019-02-25] MED LIST changes: +TRAZ1TAB10 PO; -TRAZO50TA PO
[2019-02-25 14:29] LABS: AMORPHOUS SEDIMENT SMALL (NEGATIVE); APPEARANCE, URINE HAZY (CLEAR); BACTERIA, URINE AUTO NEGATIVE (NEGATIVE); BILIRUBIN, URINE AUTO NEGATIVE (NEGATIVE); BLOOD, URINE BLOOD NEGATIVE (NEGATIVE); CALCIUM OXALATE CRYSTALS SMALL; COLOR, URINE YELLOW (YELLOW); GLUCOSE, URINE (UA) AUTO NEGATIVE (NEGATIVE); KETONE, URINE AUTO NEGATIVE (NEGATIVE); LEUKOCYTE ESTERASE, URINE AUTO NEGATIVE (NEGATIVE); MUCUS, URINE SMALL (NEGATIVE); NITRITE, URINE AUTO NEGATIVE (NEGATIVE); PROTEIN, URINE AUTO NEGATIVE (NEGATIVE); RBC, URINE AUTO 1 /HPF (0-3); SPECIFIC GRAVITY URINE AUTO 1.015 (1.002-1.035); SQUAMOUS EPITHELIAL CELL UR AU 0 /HPF (0-6); WBC, URINE AUTO 0 /HPF (0-3)
[2019-02-25 18:22] LABS: BASO # 0.1 10^3/uL (0.0-0.2); BASO % 1.2 % (0.0-1.0); EOS # 0.2 10^3/uL (0.0-0.50); EOS % 2.5 % (0.0-3.0); HEMATOCRIT 43.8 % (42.0-52.0); LYMPH # 2.9 10^3/uL (1.5-4.5); LYMPH % 37.8 % (24.0-44.0); MEAN CORPUSCULAR HEMOGLOBIN 30.5 pg (27.0-33.0); MEAN CORPUSCULAR HGB CONC 34.2 g/dl (32.0-36.5); MONO # 0.5 10^3/uL (0.0-0.8); MONO % 6.2 % (0.0-5.0); PLATELET COUNT, AUTOMATED 310 10^3/uL (150-450); RED BLOOD COUNT 4.92 10^6/uL (4.30-6.10); WHITE BLOOD COUNT 7.7 10^3/uL (4.0-10.0)
[2019-02-25 18:32] LABS: ALBUMIN 3.6 GM/DL (3.2-5.2); ALT/SGPT 123 U/L (12-78); BILIRUBIN,TOTAL 0.2 MG/DL (0.2-1.0); BLOOD UREA NITROGEN 8 MG/DL (7-18); CALCIUM LEVEL 8.8 MG/DL (8.5-10.1); CARBON DIOXIDE LEVEL 28 MEQ/L (21-32); CHLORIDE LEVEL 106 MEQ/L (98-107); CHOLESTEROL LEVEL 131 MG/DL (<200); CHOLESTEROL RISK RATIO 2.425 (<5); CREATININE FOR GFR 0.77 MG/DL (0.70-1.30); FREE T4 1.36 NG/DL (0.76-1.46); GLOMERULAR FILTRATION RATE > 60.0 (>60); GLUCOSE, FASTING 118 MG/DL (70-100); HDL CHOLESTEROL 54 MG/DL (>40); LDL CHOLESTEROL 58 MG/DL (<100); NON-HDL-C 77 MG/DL; POTASSIUM SERUM 3.7 MEQ/L (3.5-5.1); SODIUM LEVEL 143 MEQ/L (136-145); THYROID STIMULATING HORMONE 0.888 uIU/ML (0.358-3.740); TRIGLYCERIDES LEVEL 97 MG/DL (<150)
[2019-02-25 18:36] LABS: TESTOSTERONE 751 NG/DL (241-827); TOTAL 25(OH) VITAMIN D 15.6 NG/ML (30.0-100.0)
[2019-02-25 19:33] LABS: HEMOGLOBIN A1c 5.5 %
[2019-03-02 00:06] LABS: Lyme Disease IgG Ab 18 kDa Ban Absent (.); Lyme Disease IgG Ab 23 kDa Ban Absent (.); Lyme Disease IgG Ab 28 kDa Ban Absent (.); Lyme Disease IgG Ab 30 kDa Ban Absent (.); Lyme Disease IgG Ab 39 kDa Ban Absent (.); Lyme Disease IgG Ab 41 kDa Ban Absent (.); Lyme Disease IgG Ab 45 kDa Ban Absent (.); Lyme Disease IgG Ab 58 kDa Ban Absent (.); Lyme Disease IgG Ab 66 kDa Ban Absent (.); Lyme Disease IgG Ab 93 kDa Ban Absent (.); Lyme Disease IgG West Blot Int Negative (.); Lyme Disease IgG/IgM Antibodie <0.91 ISR (0.00-0.90); Lyme Disease IgM Ab 23 kDa Ban Present (.); Lyme Disease IgM Ab 39 kDa Ban Absent (.); Lyme Disease IgM Ab 41 kDa Ban Absent (.); Lyme Disease IgM Ab Quantitati 1.44 index (0.00-0.79); Lyme Disease IgM West Blot Int Negative (.)
== END ==
LOC: M LAB REF 13:06
PROVIDERS: ATTEND Family Medicine
DX: Z13.228 Encounter for screening for other metabolic disorders (principal)

== ENCOUNTER → 2019-03-23 | Outpatient (CLI) | payer OTHER ==
[2019-03-26 14:09] LABS: HEPATITIS C QUANTITATION 20 IU/mL (.)
== END ==
LOC: M LAB 19:41
PROVIDERS: ATTEND Nurse Practitioner Adult Health
DX: B18.2 Chronic viral hepatitis C (principal)

== ENCOUNTER → 2019-07-07 | Outpatient (CLI) | payer OTHER ==
[2019-07-07 20:15] LABS: CHLAMYDIA DNA AMPLIFICATION POSITIVE (NEGATIVE); GC DNA AMPLIFICATION NEGATIVE (NEGATIVE)
[2019-07-09 10:24] LABS: HIV 1&2 SCREEN CENTAUR NEGATIVE (NEGATIVE)
== END ==
LOC: M LAB 16:49
DX: Z20.2 Contact with and (suspected) exposure to infections with a predominantly sexual mode of transmission (principal); Z11.4 Encounter for screening for human immunodeficiency virus [HIV]

== ENCOUNTER 2019-08-24 20:27 | Emergency (ER) | payer OTHER ==
[~2019-08-24] VITALS: Ht 182.9 cm; Wt 74.7 kg
[2019-08-24 21:23] LABS: HEMATOCRIT 40.6 % (42.0-52.0); HEMOGLOBIN 13.6 g/dl (13.5-17.5); MEAN CORPUSCULAR HEMOGLOBIN 29.3 pg (27.0-33.0); MEAN CORPUSCULAR HGB CONC 33.5 g/dl (32.0-36.5); MEAN CORPUSCULAR VOLUME 87.5 fl (80.0-96.0); PLATELET COUNT, AUTOMATED 283 10^3/uL (150-450); RED BLOOD COUNT 4.64 10^6/uL (4.30-6.10); WHITE BLOOD COUNT 9.1 10^3/uL (4.0-10.0)
[2019-08-24] MEDS ORDERED: VIVI380I IM (21:30)
[2019-08-24 21:48] LABS: AMPHETAMINES LEVEL URINE NEGATIVE (NEGATIVE); BARBITURATES URINE NEGATIVE (NEGATIVE); BENZODIAZEPINES URINE NEGATIVE (NEGATIVE); CANNABINOIDS URINE NEGATIVE (NEGATIVE); COCAINE METABOLITE URINE NEGATIVE (NEGATIVE); METHADONE URINE NEGATIVE (NEGATIVE); OPIATES URINE NEGATIVE (NEGATIVE); PHENCYCLIDINE URINE NEGATIVE (NEGATIVE)
[2019-08-24 21:58] LABS: ACETAMINOPHEN LEVEL < 2.0 UG/ML (10.0-30.0); ALBUMIN 3.3 GM/DL (3.2-5.2); ALT/SGPT 18 U/L (12-78); BILIRUBIN,DIRECT < 0.1 MG/DL (0.0-0.2); BILIRUBIN,TOTAL 0.2 MG/DL (0.2-1.0); BLOOD UREA NITROGEN 9 MG/DL (7-18); CALCIUM LEVEL 8.3 MG/DL (8.5-10.1); CARBON DIOXIDE LEVEL 30 MEQ/L (21-32); CHLORIDE LEVEL 107 MEQ/L (98-107); CREATININE FOR GFR 0.93 MG/DL (0.70-1.30); ETHYL ALCOHOL (ETHANOL) < 0.003 % (0.000-0.010); GLOMERULAR FILTRATION RATE > 60.0 (>60); GLUCOSE, FASTING 114 MG/DL (70-100); POTASSIUM SERUM 4.1 MEQ/L (3.5-5.1); SALICYLATE LEVEL 1.8 MG/DL (5.0-30.0); SODIUM LEVEL 142 MEQ/L (136-145); TOTAL PROTEIN 6.2 GM/DL (6.4-8.2)
[2019-08-25 06:12] VITALS: BP 151/72
--- NOTE | 2019-08-25 11:12 | ECGEPIP ---
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
== END 2019-08-25 06:21 ==
LOC: M ED 20:27
DX: F29 Unspecified psychosis not due to a substance or known physiological condition (principal); F32.9 Major depressive disorder, single episode, unspecified; F41.9 Anxiety disorder, unspecified; F19.10 Other psychoactive substance abuse, uncomplicated; Z87.19 Personal history of other diseases of the digestive system; Z79.899 Other long term (current) drug therapy; Z88.1 Allergy status to other antibiotic agents
CPT/HCPCS: 36415; 80048; 80076; 80307; 84443; 85027; 93005; 99285; G0480

== ENCOUNTER → 2019-09-22 | Outpatient (CLI) | payer OTHER ==
[~2019-09-22] MED LIST changes: +VIVI380I IM
[2019-09-22 18:24] LABS: ALBUMIN 4.1 GM/DL (3.2-5.2); ALT/SGPT 16 U/L (12-78); BILIRUBIN,DIRECT < 0.1 MG/DL (0.0-0.2); BILIRUBIN,TOTAL 0.3 MG/DL (0.2-1.0); TOTAL PROTEIN 6.9 GM/DL (6.4-8.2)
== END ==
LOC: M LAB 16:54
PROVIDERS: ATTEND Nurse Practitioner Family
DX: F11.20 Opioid dependence, uncomplicated (principal)

== ENCOUNTER 2020-01-02 17:37 | Emergency (ER) | payer OTHER ==
[~2020-01-02] VITALS: Ht 182.9 cm; Wt 71.2 kg
[2020-01-02 17:38] VITALS: BP 137/86
[2020-01-02] MEDS ORDERED: BUPR300T92 PO (17:42)
[2020-01-02] MEDS ORDERED: GABA-843 PO (17:42)
[2020-01-02] MEDS ORDERED: LIDOCAINE 1% SDV 5ML VIAL DILUENT ONE (18:15)
[2020-01-02] MEDS ORDERED: AZITHROMYCIN 250MG TABLET PO ONE (18:15)
[2020-01-02] MEDS ORDERED: cefTRIAXone SOD 250MG VIAL (J0696 PER 250MG) IM ONE (18:15)
[2020-01-02 19:35] LABS: CHLAMYDIA DNA AMPLIFICATION NEGATIVE (NEGATIVE); GC DNA AMPLIFICATION NEGATIVE (NEGATIVE)
[2020-01-03 10:47] LABS: HEPATITIS B SURFACE ANTIBODY POSITIVE (POSITIVE); HEPATITIS B SURFACE ANTIGEN NEGATIVE (NEGATIVE); HIV 1&2 SCREEN CENTAUR NEGATIVE (NEGATIVE)
== END 2020-01-02 18:48 | disposition home or self-care (01) ==
LOC: M ED 17:37
DX: R36.9 Urethral discharge, unspecified (principal); N45.1 Epididymitis; Z20.2 Contact with and (suspected) exposure to infections with a predominantly sexual mode of transmission; F31.9 Bipolar disorder, unspecified; F43.10 Post-traumatic stress disorder, unspecified; F17.200 Nicotine dependence, unspecified, uncomplicated; Z86.59 Personal history of other mental and behavioral disorders; Z79.899 Other long term (current) drug therapy; Z88.2 Allergy status to sulfonamides
CPT/HCPCS: 36415; 86706; 86780; 87340; 87389; 87661; 96372; 99282; J0696

== ENCOUNTER 2020-02-22 18:16 | Inpatient (IN) | payer OTHER ==
[~2020-02-22 18:16] MED LIST changes: +BUPR300T92 PO
[2020-02-22] MEDS ORDERED: NALOXONE INJ 0.4MG/1ML VIAL (J2310 PER 1MG) IV STA ×3 (18:24→18:51)
[2020-02-22] MEDS ORDERED: NALOXONE 2MG/2ML SYRINGE (J2310 PER 1MG) IM STA (18:58)
[2020-02-22] MEDS ORDERED: NALOXONE 2MG/2ML SYRINGE (J2310 PER 1MG) IV STA ×2 (18:58→19:13)
[2020-02-22] MEDS: NS 1,000 ML IV SCH (19:33)
--- NOTE | 2020-02-22 19:52 | REPVR ---
PROCEDURE INFORMATION: Exam: CT Head Without Contrast Exam date and time: 02/22/2020 7:40 PM Age: 39 years old Clinical indication: Altered mental status/memory loss; Confusion or disorientation TECHNIQUE: Imaging protocol: Computed tomography of the head without contrast. Radiation optimization: All CT scans at this facility use at least one of these dose optimization techniques: automated exposure control; mA and/or kV adjustment per patient size (includes targeted exams where dose is matched to clinical indication); or iterative reconstruction. COMPARISON: MRI-Brain W/O FOLL BY WITH 01/30/2017 2:10 PM FINDINGS: Brain: No intracranial mass, mass effect or midline shift. No acute intracranial hemorrhage. No CT evidence of acute cortical infarct. Ventricles: Ventricles, cisterns, and sulci are normal in size for age. Bones/joints: No calvarial fracture or destructive process. Sinuses: Imaged paranasal sinuses are clear. Mastoid air cells: Mastoid air cells are normally aerated. Orbits: Imaged orbits are unremarkable. Soft tissues: No focal extracranial soft tissue swelling. IMPRESSION: No acute or concerning focal intracranial abnormality. Electronically signed by: Mj Jimenez On 02/22/2020 19:51:47 PM
--- NOTE | 2020-02-22 20:04 | REP ---
Single view chest: 02/22/2020. Indication: Altered mental status. Comparison: 02/16/2018. Findings: The lungs are clear. There is no pleural effusions or pneumothorax. Cardiac silhouette is normal. Impression: No acute cardiopulmonary process. Electronically Signed by Terrence Fregoso DO 02/22/2020 07:55 P
[2020-02-22 20:14] LABS: BASO # 0.1 10^3/uL (0.0-0.2); EOS % 0.6 % (0.0-3.0); HEMATOCRIT 43.2 % (42.0-52.0); HEMOGLOBIN 14.8 g/dl (13.5-17.5); LYMPH # 1.7 10^3/uL (1.5-5.0); LYMPH % 27.1 % (24.0-44.0); MEAN CORPUSCULAR HGB CONC 34.3 g/dl (32.0-36.5); MEAN CORPUSCULAR VOLUME 84.7 fl (80.0-96.0); MONO # 0.5 10^3/uL (0.0-0.8); MONO % 7.9 % (0.0-5.0); NEUTROPHILS # 3.9 10^3/uL (1.5-8.5); NEUTROPHILS % 63.1 % (36.0-66.0); PLATELET COUNT, AUTOMATED 201 10^3/uL (150-450); WHITE BLOOD COUNT 6.2 10^3/uL (4.0-10.0)
--- NOTE | 2020-02-22 20:21 | ECGEPIP ---
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
[2020-02-22 20:28] LABS: AMPHETAMINES LEVEL URINE NEGATIVE (NEGATIVE); BARBITURATES URINE NEGATIVE (NEGATIVE); BENZODIAZEPINES URINE NEGATIVE (NEGATIVE); CANNABINOIDS URINE NEGATIVE (NEGATIVE); COCAINE METABOLITE URINE NEGATIVE (NEGATIVE); METHADONE URINE NEGATIVE (NEGATIVE); OPIATES URINE NEGATIVE (NEGATIVE); PHENCYCLIDINE URINE NEGATIVE (NEGATIVE)
[2020-02-22 20:41] LABS: ACETAMINOPHEN LEVEL < 2.0 UG/ML (10.0-30.0); ALBUMIN 3.7 GM/DL (3.2-5.2); ALT/SGPT 543 U/L (12-78); BILIRUBIN,DIRECT 0.4 MG/DL (0.0-0.2); BILIRUBIN,TOTAL 0.9 MG/DL (0.2-1.0); BLOOD UREA NITROGEN 19 MG/DL (7-18); CALCIUM LEVEL 8.6 MG/DL (8.5-10.1); CARBON DIOXIDE LEVEL 26 MEQ/L (21-32); CHLORIDE LEVEL 101 MEQ/L (98-107); CK-MB VALUE MASS 1.1 NG/ML (<3.6); CPK CREATINE PHOSPHOKINASE 78 U/L (39-308); CREATININE FOR GFR 1.07 MG/DL (0.70-1.30); ETHYL ALCOHOL (ETHANOL) < 0.003 % (0.000-0.010); GLOMERULAR FILTRATION RATE > 60.0 (>60); GLUCOSE, FASTING 161 MG/DL (70-100); MB/CK RELATIVE INDEX 1.41 (< OR =4); POTASSIUM SERUM 3.3 MEQ/L (3.5-5.1); SALICYLATE LEVEL < 1.7 MG/DL (5.0-30.0); SODIUM LEVEL 135 MEQ/L (136-145); TOTAL PROTEIN 7.1 GM/DL (6.4-8.2); TROPONIN I < 0.02 NG/ML (< 0.10)
[2020-02-22] MEDS ORDERED: GABA600T4 PO (21:12)
[2020-02-22] MEDS ORDERED: PATIENT COMMENT (21:13)
[2020-02-22 21:28] LABS: ABG BASE EXCESS 1.7 (-2.0-2.0); ABG HCO3 27.3 MEQ/L (22.0-26.0); ABG O2 SATURATION 97.4 % (95.0-99.0); ABG PARTIAL PRESSURE CO2 46.4 mmHg (35.0-45.0); ABG PARTIAL PRESSURE O2 92.8 mmHg (75.0-100.0); ABG STANDARD HCO3 25.9 MEQ/L (22.0-26.0); ABG TOTAL CO2 28.7 MEQ/L (22.0-29.0); ABG pH (ARTERIAL) 7.387 UNITS (7.350-7.450)
[2020-02-22] MEDS ORDERED: NS 1,000 ML IV SCH (21:49)
--- NOTE | 2020-02-22 21:53 | HPEPDOC ---
[facility] Medical History & Physical Date of Admission Feb 22, 2020 Date of Service: Feb 22, 2020 Attending Physician: ROLY BENNETT MD History and Physical TIME OF SERVICE: 9:58 PM CHIEF COMPLAINT: Alleged drug overdose HISTORY OF PRESENT ILLNESS: The majority of the history is obtained from Dr. Perry the patient was too sedated to answer any of my questions. This is a 39-year-old male who apparently was witnessed overdose on heroin. On the field. EMS gave him several doses of Narcan and his mental status didn't improve. In the ER, he received several more doses of Narcan, a total of 8.7mg, but still remains sedated. The initial workup including CBC, CMP, chest x-ray, CT of the head UA and drug screen are only remarkable for hypokalemia transaminitis and mild hyperglycemia. REVIEW OF SYSTEMS: Unobtainable PAST MEDICAL/ SURGICAL HISTORY: Anxiety Depression. Hx of hepatitis C status post treatment SOCIAL HISTORY: History of heroin abuse FAMILY HISTORY: Diabetes CAD ALLERGIES: Please see below. HOME MEDICATIONS: Please see below. PHYSICAL EXAMINATION: Vital Signs Date Time Temp Pulse Resp B/P (MAP) Pulse Ox O2 Delivery O2 Flow Rate FiO2 02/22/20 18:21 110/57 (74) 02/22/20 18:25 115 16 98 Room Air 02/22/20 18:30 97.9 GEN: GCS E1 V1 M4 =6 INTEGUMENT: not flushed/ not jaundice / has multiple tattoos HEENT: NCAT / lips acyanotic /mucus membranes dry CVS: RRR/NMRG/ radial pulses intact / no lower extremity edema LUNGS: protecting air way/ lungs are clear to auscultation bilaterally on room air ABDOMEN: Contour (flat) / soft &he doesn't grimace or withdraw with palpation NEURO: pupils pin point LABORATORY DATA: Immature Granulocyte % (Auto) 0.3, Neutrophils (%) (Auto) 63.1, Lymphocytes (%) (Auto) 27.1, Monocytes (%) (Auto) 7.9H, Eosinophils (%) (Auto) 0.6, Basophils (%) (Auto) 1.0, Neutrophils # (Auto) 3.9, Lymphocytes # (Auto) 1.7, Monocytes # (Auto) 0.5, Eosinophils # (Auto) 0.0, Basophils # (Auto) 0.1, Nucleated Red Blood Cells % (auto) 0.0, Anion Gap 8, Glomerular Filtration Rate > 60.0, Calcium Level 8.6, Total Bilirubin 0.9, Direct Bilirubin 0.4H, Aspartate Amino Transf (AST/SGOT) 421H, Alanine Aminotransferase (ALT/SGPT) 543H, Alkaline Phosphatase 77, Total Creatine Kinase 78, Creatine Kinase MB 1.1, Creatine Kinase MB Relative Index 1.41, Troponin I < 0.02, Total Protein 7.1, Albumin 3.7, Albumin/Globulin Ratio 1.1, Thyroid Stimulating Hormone (TSH) 2.550, Salicylates Level < 1.7L, Urine Opiates Screen NEGATIVE, Urine Methadone Screen NEGATIVE, Acetaminophen Level < 2.0L, Urine Barbiturates Screen NEGATIVE, Urine Phencyclidine Screen NEGATIVE, Urine Amphetamines Screen NEGATIVE, Urine Benzodiazepines Screen NEGATIVE, Urine Cocaine Metabolite Screen NEGATIVE, Urine Cannabinoids Screen NEGATIVE, Ethyl Alcohol Level < 0.003 02/22/20 21:16: Blood Gas Bicarbonate Standard 25.9, Arterial Blood pH 7.387, Arterial Blood Partial Pressure CO2 46.4H, Arterial Blood Partial Pressure O2 92.8, Arterial Blood Total CO2 28.7, Arterial Blood HCO3 27.3H, Arterial Blood Base Excess 1.7, Arterial Blood Oxygen Saturation 97.4 IMAGING: CT of the head "IMPRESSION: No acute or concerning focal intracranial abnormality. " Chest x-ray "Impression: No acute cardiopulmonary process." MICROBIOLOGY: Please see below. ASSESSMENT: Mr. Alexander is a 39-year-old with a history of polysubstance abuse who is admitted for encephalopathy, possibly due to drug overdose. PLAN: 1. Altered Mental Status / Encephalopathy There were reports of the patient overdosing on heroin, but our drug screen is negative. His chemistry, serum glucose, TSH, and CT of the head are unrevealing. It is possible he took another substance that does not show up on her tox screen. Other possible causes of his altered mental status include elevated ammonia or other cause TBD Plan: admit to ICU / neurochecks / f/u accuchecks, ammonia / seizure precau tions / nothing by mouth/IV fluids/place Stone / hold all nonessential meds / if his mental status doesn't improve, the daytime team may consider ordering an MRI of the brain 2. Transaminitis As a history of treated hep C Plan: Follow-up liver ultrasound 3. Hypokalemia Clear due to poor oral intake Plan: IV KCl /f/u magnesium DVT PROPHYLAXIS: lovenox DISPOSITION: pending clinical course Home Medications Scheduled Bupropion HCl (Bupropion Xl) 300 Mg Tab.er.24h, 300 MG PO DAILY Gabapentin (Gabapentin) 600 Mg Tablet, 600 MG PO TID Naltrexone Microspheres (Vivitrol) 380 Mg Pooja.er.rec, 380 MG IM QMONTH UNKNOWN IF PATIET STILL RECEIVES THROUGH [facility] Miscellaneous Medications [Patient Comment] UNABLE TO VERIFY MEDS WITH PATIENT - MED LIST OBTAINED FROM EXT MED HISTORY Allergies Coded Allergies: sulfamethoxazole (Verified Allergy, Intermediate, HIVES, 08/24/19) trimethoprim (Verified Allergy, Intermediate, HIVES, 08/24/19) A-FIB/CHADSVASC A-FIB History Current/History of A-Fib/PAF?: No Current PO Anticoag Therapy: No ROLY BENNETT MD Feb 22, 2020 21:53
--- NOTE | 2020-02-22 23:10 | REPVR ---
PROCEDURE INFORMATION: Exam: US Abdomen Limited, Right Upper Quadrant Exam date and time: 02/22/2020 10:56 PM Age: 39 years old Clinical indication: Abnormal findings; Abnormal lab test; Elevated liver enzymes; Additional info: Transaminitis TECHNIQUE: Imaging protocol: Real-time ultrasound of the abdomen with image documentation. Examination was focused on the right upper quadrant. COMPARISON: LIVER US 02/18/2018 9:50 AM FINDINGS: Pancreas is sonographically normal. Liver is mildly echogenic in echotexture, with no focal lesion. Gallbladder is anechoic. No stone, mural edema or pericholecystic fluid. Common bile duct measures 4 mm in diameter. Right kidney measures 11.6 cm in long axis. Right kidney appears normal. No free fluid. IMPRESSION: Diffuse mild increased echotexture of the liver which may suggest hepatic steatosis. No focal lesion or biliary obstruction. No evidence of gallstones or biliary tract disease. Electronically signed by: Mj Jimenez On 02/22/2020 23:10:32 PM
[2020-02-22 23:31] LABS: MAGNESIUM LEVEL 2.1 MG/DL (1.8-2.4)
[2020-02-23] VITALS (8 sets, daily range): BP systolic 79–132; BP diastolic 57–67
[2020-02-23] MEDS: NS 1,000 ML IV SCH (00:20)
[2020-02-23] MEDS ORDERED: LORazepam 2 MG/ML VIAL IV ONE (00:30)
[2020-02-23] MEDS: KCL 10MEQ/100ML SWI (KRUN) 10 MEQ in IV 1 EA IV SCH ×4 (00:34→07:19)
[2020-02-23 04:26] LABS: HEMATOCRIT 41.2 % (42.0-52.0); MEAN CORPUSCULAR VOLUME 85.3 fl (80.0-96.0); PLATELET COUNT, AUTOMATED 192 10^3/uL (150-450); RED BLOOD COUNT 4.83 10^6/uL (4.30-6.10); WHITE BLOOD COUNT 7.4 10^3/uL (4.0-10.0)
[2020-02-23 04:46] LABS: BLOOD UREA NITROGEN 17 MG/DL (7-18); CALCIUM LEVEL 8.3 MG/DL (8.5-10.1); CARBON DIOXIDE LEVEL 29 MEQ/L (21-32); CHLORIDE LEVEL 108 MEQ/L (98-107); CREATININE FOR GFR 0.87 MG/DL (0.70-1.30); GLOMERULAR FILTRATION RATE > 60.0 (>60); GLUCOSE, FASTING 106 MG/DL (70-100); MAGNESIUM LEVEL 2.5 MG/DL (1.8-2.4); POTASSIUM SERUM 3.7 MEQ/L (3.5-5.1); SODIUM LEVEL 140 MEQ/L (136-145)
[2020-02-23] MEDS ORDERED: LORazepam 2 MG/ML VIAL As Ordered ONE ×2 (05:00→06:05)
[2020-02-23] MEDS ORDERED: LORazepam 2 MG/ML VIAL IV PRN (06:00)
[2020-02-23] MEDS ORDERED: KCL 10MEQ IN STERILE WATER 100ML As Ordered ONE (07:16)
[2020-02-23] MEDS ORDERED: HALOPERIDOL 5MG/ML VIAL (J1630 PER 1) IM STA (07:50)
[2020-02-23] MEDS: ENOXAPARIN 40MG/0.4ML SYRINGE (J1650 PER 10MG) SC SCH (09:44)
--- NOTE | 2020-02-23 10:23 | IPNPDOC ---
Subjective Date Seen The patient was seen on 02/23/20. Subjective Chief Complaint/HPI Code 25 was called as patient was very agitated, pulling out his IV manager monitoring, try to get out of bed. Patient was examined at bedside. IV and monitor were DC'd and he was a calm down by talking tohim. , Haldol 5 mg IV IM instead was given to prevent him from causing harm to himself or others. General: Reports: Other Symptoms (unable to obtained review of systems patient is agitated) Objective Physical Examination General Exam: Positive: Alert, Other (, oriented 1) Eye Exam: Positive: PERRLA, Conjunctiva & lids normal Chest Exam: Positive: Clear to auscultation, Normal air movement Heart Exam: Positive: Rate Normal, Normal S1, Normal S2 Abdomen Exam: Positive: Normal bowel sounds, Soft, Tenderness Extremity Exam: Positive: Normal pulses Skin Exam: Positive: Nl turgor and temperature Neuro Exam: Positive: Other (. Unable to do neuro exam) Psych Exam: Positive: Other (able to psych exam) Assessment /Plan Problems (1) Toxic encephalopathy Status: Acute Problem Text: Altered mental status, most likely toxic encephalopathy, most likely polysubstance abuse, but his drug screen was negative CT head was essentially negative. Probably the digital media designer drugs would do not show in the regular drug screen Patient will be transferred to [facility] floor with one-to-one watch Will restart IV fluids and monitor clinically May restart the oral feeding DC manager monitoring Further management depends on patient's clinical response (2) Agitation Status: Acute Problem Text: Patient with the agitation, pulling his IV line manager monitoring o ff , Most likely secondary to is a toxic encephalopathy secondary to drugs , But cannot rule out underlying psych disorder Will give him Haldol 5 mg IM. to. Preventative causing injury to himself or o thers Continue one-to-one watch (3) Hepatitis C Status: Chronic Problem Text: History of hep C, monitor LFTs Plan/VTE VTE Prophylaxis Ordered?: Yes VS, I&O, 24H, Fishbone Vital Signs/I&O Vital Signs Date Time Temp Pulse Resp B/P (MAP) Pulse Ox O2 Delivery O2 Flow Rate FiO2 02/23/20 09:32 96.3 66 14 113/57 (75) 98 Room Air I&O- Last 24 Hours up to 6 AM 02/23/20 06:00 Intake Total 1350 ml Output Total 950 ml Balance 400 ml Laboratory Data 24H LABS Laboratory Tests 2 02/22/20 19:20: Bedside Glucose (Misc Panel) 123H 02/22/20 19:29: Immature Granulocyte % (Auto) 0.3, Neutrophils (%) (Auto) 63.1, Lymphocytes (%) (Auto) 27.1, Monocytes (%) (Auto) 7.9H, Eosinophils (%) (Auto) 0.6, Basophils (%) (Auto) 1.0, Neutrophils # (Auto) 3.9, Lymphocytes # (Auto) 1.7, Monocytes # (Auto) 0.5, Eosinophils # (Auto) 0.0, Basophils # (Auto) 0.1, Nucleated Red Blood Cells % (auto) 0.0, Urine Color YELLOW, Urine Appearance HAZY, Urine pH 7.0, Urine Specific [place] 1.023, Urine Protein 1+H, Urine Glucose (UA) NEGATIVE, Urine Ketones 1+H, Urine Blood NEGATIVE, Urine Nitrite NEGATIVE, Urine Bilirubin NEGATIVE, Urine Urobilinogen 0.2, Urine Leukocyte Esterase NEGATIVE, Urine WBC (Auto) 1, Urine RBC (Auto) 1, Urine Hyaline Casts (Auto) 0, Urine Bacteria (Auto) NEGATIVE, Urine Squamous Epithelial Cells 0, Urine Mucus (Auto) SMALL, Urine Sperm (Auto) , Anion Gap 8, Glomerular Filtration Rate > 60.0, Calcium Level 8.6, Magnesium Level 2.1, Total Bilirubin 0.9, Direct Bilirubin 0.4H, Aspartate Amino Transf (AST/SGOT) 421H, Alanine Aminotransferase (ALT/SGPT) 543H, Alkaline Phosphatase 77, Total Creatine Kinase 78, Creatine Kinase MB 1.1, Creatine Kinase MB Relative Index 1.41, Troponin I < 0.02, Total Protein 7.1, Albumin 3.7, Albumin/Globulin Ratio 1.1, Thyroid Stimulating Hormone (TSH) 2.550, Salicylates Level < 1.7L, Urine Opiates Screen NEGATIVE, Urine Methadone Screen NEGATIVE, Acetaminophen Level < 2.0L, Urine Barbiturates Screen NEGATIVE, Urine Phencyclidine Screen NEGATIVE, Urine Amphetamines Screen NEGATIVE, Urine Benzodiazepines Screen NEGATIVE, Urine Cocaine Metabolite Screen NEGATIVE, Urine Cannabinoids Screen NEGATIVE, Ethyl Alcohol Level < 0.003 02/22/20 21:16: Blood Gas Bicarbonate Standard 25.9, Arterial Blood pH 7.387, Arterial Blood Partial Pressure CO2 46.4H, Arterial Blood Partial Pressure O2 92.8, Arterial Blood Total CO2 28.7, Arterial Blood HCO3 27.3H, Arterial Blood Base Excess 1.7, Arterial Blood Oxygen Saturation 97.4 02/22/20 22:49: Ammonia 24 02/23/20 00:28: Bedside Glucose (Misc Panel) 111H 02/23/20 04:08: Nucleated Red Blood Cells % (auto) 0.0, Anion Gap 3L, Glomerular Filtration Rate > 60.0, Calcium Level 8.3L, Magnesium Level 2.5H 02/23/20 06:25: Bedside Glucose (Misc Panel) 95 CBC/BMP Laboratory Tests 02/22/20 19:29 02/23/20 04:08 Microbiology Microbiology 02/22/20 Blood Culture, Received Pending SASKIA ORONA MD Feb 23, 2020 10:23
[2020-02-23 10:37] LABS: HEPATITIS A ANTIBODY IGM NEGATIVE (NEGATIVE); HEPATITIS B CORE ANTIBODY IGM NEGATIVE (NEGATIVE); HEPATITIS B SURFACE ANTIGEN NEGATIVE (NEGATIVE)
[2020-02-23 10:43] LABS: HEPATITIS C VIRUS ABY INDEX > 11.0 INDEX (<0.8)
[2020-02-23] MEDS: D5W/0.9% SODIUM CHLORIDE 1,000 ML IV SCH ×2 (11:15→19:42)
[2020-02-24] MEDS: D5W/0.9% SODIUM CHLORIDE 1,000 ML IV SCH (05:33)
[2020-02-24 06:00] VITALS: BP 116/56
[2020-02-24 06:20] LABS: BASO # 0.1 10^3/uL (0.0-0.2); BASO % 1.2 % (0.0-1.0); EOS # 0.1 10^3/uL (0.0-0.5); EOS % 1.9 % (0.0-3.0); HEMATOCRIT 40.3 % (42.0-52.0); HEMOGLOBIN 13.4 g/dl (13.5-17.5); LYMPH # 1.3 10^3/uL (1.5-5.0); LYMPH % 27.4 % (24.0-44.0); MEAN CORPUSCULAR HEMOGLOBIN 28.9 pg (27.0-33.0); MEAN CORPUSCULAR HGB CONC 33.3 g/dl (32.0-36.5); MEAN CORPUSCULAR VOLUME 86.9 fl (80.0-96.0); MONO # 0.4 10^3/uL (0.0-0.8); MONO % 8.9 % (0.0-5.0); NEUTROPHILS # 2.9 10^3/uL (1.5-8.5); NEUTROPHILS % 60.2 % (36.0-66.0); PLATELET COUNT, AUTOMATED 165 10^3/uL (150-450); RED BLOOD COUNT 4.64 10^6/uL (4.30-6.10); WHITE BLOOD COUNT 4.9 10^3/uL (4.0-10.0)
[2020-02-24 06:45] LABS: ALBUMIN 2.7 GM/DL (3.2-5.2); ALT/SGPT 424 U/L (12-78); BILIRUBIN,TOTAL 0.4 MG/DL (0.2-1.0); BLOOD UREA NITROGEN 12 MG/DL (7-18); CALCIUM LEVEL 7.6 MG/DL (8.5-10.1); CARBON DIOXIDE LEVEL 30 MEQ/L (21-32); CHLORIDE LEVEL 110 MEQ/L (98-107); CREATININE FOR GFR 0.81 MG/DL (0.70-1.30); GLOMERULAR FILTRATION RATE > 60.0 (>60); GLUCOSE, FASTING 108 MG/DL (70-100); MAGNESIUM LEVEL 1.9 MG/DL (1.8-2.4); SODIUM LEVEL 142 MEQ/L (136-145); TOTAL PROTEIN 5.6 GM/DL (6.4-8.2)
[2020-02-24] MEDS: ENOXAPARIN 40MG/0.4ML SYRINGE (J1650 PER 10MG) SC SCH (08:44)
[2020-02-24] MEDS ORDERED: TAMSULOSIN 0.4 MG CAP PO ONE (09:00)
[2020-02-24] MEDS ORDERED: PHYSOSTIGMINE SALICYLATE 2 MG/2 ML AMP IV ONE (11:00)
--- NOTE | 2020-02-24 12:22 | DS.PDOC ---
Discharge Summary General Date of Admission Feb 22, 2020 at 21:49 Date of Discharge 02/24/20 Discharge Summary PROCEDURES PERFORMED DURING STAY: None. ADMITTING DIAGNOSES: 1. Altered mental status. DISCHARGE DIAGNOSES: 1. Altered mental status, toxic encephalopathy, drug overdose, urinary retention. COMPLICATIONS/CHIEF COMPLAINT: Encephalitis. HISTORY OF PRESENT ILLNESS: The majority of the history is obtained from Dr. Perry the patient was too sedated to answer any of my questions. This is a 39-year-old male who apparently was witnessed overdose on heroin. On the field. EMS gave him several doses of Narcan and his mental status didn't improve. In the ER, he received several more doses of Narcan, a total of 8.7mg, but still remains sedated. The initial workup including CBC, CMP, chest x-ray, CT of the head UA and drug screen are only remarkable for hypokalemia transaminitis and mild hyperglycemia.. HOSPITAL COURSE: Altered mental status, most likely toxic encephalopathy, initially is not part polysubstance abuse, but his drug screen was negative CT head was essentially negative. Probably the floral designer drugs would do not show in the regular drug screen Patient later on was transferred to [facility] floor with one-to-one watch Did became agitated while he was in ICU. His patient monitor pulse ox were DC'd and he was started on oral feeding During his agitation. He did receive a Haldol 5 mg IM On the medical floor. Initially, he was lethargic secondary to metastases, but later on He became alert, awake and oriented 3 And he was very pleasant and cooperative and according to patient, he had taken the Seroquel medications by mistake. . He denied any suicidal or homicidal ideations or plans . He did experience some anti-cholinergic side effects of Seroquel such as a urinary retention Initial plan was to give him physostigmine to reverse anticholinergic effects, but he succeeded in micturating by himself without any pharmaceutical interventi on She will be discharged home today and he will follow with PCP in one week . DISCHARGE MEDICATIONS: Please see below. ALLERGIES: Please see below. PHYSICAL EXAMINATION ON DISCHARGE: VITAL SIGNS: Please see below. GENERAL: Within normal limits HEENT: PERRLA. Extraocular muscles intact NECK: Supple CARDIOVASCULAR EXAMINATION: S1, S2, regular RESPIRATORY EXAMINATION: Clear to A&P ABDOMINAL EXAMINATION: Benign EXTREMITIES: No clubbing, cyanosis, edema SKIN: Within normal limits NEUROLOGICAL EXAMINATION: Focal motor sensory deficit PSYCHIATRIC EXAMINATION: Normal LABORATORY DATA: Please see below. IMAGING: CT of head: Within normal limits PROGNOSIS: Good ACTIVITY: As tolerated. DIET: As tolerated DISCHARGE PLAN: Discharge home DISPOSITION: 01 Home, Self-Care. DISCHARGE INSTRUCTIONS: 1. As per discharge instructions. ITEMS TO FOLLOWUP ON ON OUTPATIENT: 1. Follow with PCP in one week. DISCHARGE CONDITION: Stable. TIME SPENT ON DISCHARGE: 25 minutes. Vital Signs/I&Os Vital Signs Date Time Temp Pulse Resp B/P (MAP) Pulse Ox O2 Delivery O2 Flow Rate FiO2 02/24/20 06:00 97.7 58 16 116/56 (76) 98 Room Air I&O- Last 24 Hours up to 6 AM 02/24/20 06:00 Intake Total 3770 ml Output Total 625 ml Balance 3145 ml Laboratory Data Labs 24H Laboratory Tests 2 02/24/20 06:05: Immature Granulocyte % (Auto) 0.4, Neutrophils (%) (Auto) 60.2, Lymphocytes (%) (Auto) 27.4, Monocytes (%) (Auto) 8.9H, Eosinophils (%) (Auto) 1.9, Basophils (%) (Auto) 1.2H, Neutrophils # (Auto) 2.9, Lymphocytes # (Auto) 1.3L, Monocytes # (Auto) 0.4, Eosinophils # (Auto) 0.1, Basophils # (Auto) 0.1, Nucleated Red Blood Cells % (auto) 0.0, Anion Gap 2L, Glomerular Filtration Rate > 60.0, Calcium Level 7.6L, Magnesium Level 1.9, Total Bilirubin 0.4#, Aspartate Amino Transf (AST/SGOT) 292H, Alanine Aminotransferase (ALT/SGPT) 424H, Alkaline Phosphatase 78, Total Protein 5.6#L, Albumin 2.7#L, Albumin/Globulin Ratio 0.9 CBC/BMP Laboratory Tests 02/24/20 06:05 Microbiology Microbiology 02/22/20 Blood Culture - Preliminary, Resulted No growth after 24 hours . All specim... Discharge Medications Scheduled Bupropion HCl (Bupropion Xl) 300 Mg Tab.er.24h, 300 MG PO DAILY, (Reported) Gabapentin (Gabapentin) 600 Mg Tablet, 600 MG PO TID, (Reported) Naltrexone Microspheres (Vivitrol) 380 Mg Pooja.er.rec, 380 MG IM QMONTH, (Reported) UNKNOWN IF PATIET STILL RECEIVES THROUGH [facility] Allergies Coded Allergies: sulfamethoxazole (Verified Allergy, Intermediate, HIVES, 08/24/19) trimethoprim (Verified Allergy, Intermediate, HIVES, 08/24/19) SASKIA ORONA MD Feb 24, 2020 12:22
== END 2020-02-24 11:45 | disposition home or self-care (01) | DRG 52 ==
LOC: M ED 18:16 → EDBD 18:16 → M ED INP 21:49 → ENRESERV 22:42 → M ICU 23:51 → M MSPAV 02-23 09:29
PROVIDERS: ADMIT Internal Medicine; ATTEND Internal Medicine
DX: G92 Toxic encephalopathy (principal); F14.10 Cocaine abuse, uncomplicated; B18.2 Chronic viral hepatitis C; E87.6 Hypokalemia; Z79.899 Other long term (current) drug therapy; Z88.2 Allergy status to sulfonamides; Z88.8 Allergy status to other drugs, medicaments and biological substances